=== PATIENT | female | born 1960 | race African-American/Black ===

== ENCOUNTER 2019-04-29 19:04 | Observation (INO) ==
--- NOTE | 2019-04-29 19:44 | PROVIDER DOCUMENTATION ---
HPI-Musculoskeletal Pain/Inj - GENERAL Chief Complaint: Back Pain Stated Complaint: BACK PAIN Time Seen by Provider: 04/29/19 19:17 Source: patient - HX OF PRESENT ILLNESS-MUSKULOSKELTAL Nature of Presenting Problem: 59yof present to ER with c/o R lower back pain radiating down R leg x 4-5 days. Pt denies urinary s/s. Pt denies fever. Pt nontoxic. Pt states she was seen at [facility] on Tuesday for same complaint. Pt states her INR on Tuesday was 8, states she was told not to take Coumadin until f/u on Tuesday. Pt denies any active bleeding. Pt brings a suitcase with her to ER and states "Im here to stay. I'm not going back home." Quality of Pain: reports: aching, throbbing Onset/Duration: 5 days ago Timing: still present Modifying Factors: improves with: rest. worse with: movement, palpation - BACK & NECK PAIN/INJURY Back/Neck Pain Location: reports: lumbar spine, paraspinous muscles Context / Method of Injury: reports: unknown Associated Symptoms: reports: lower back pain, muscle spasms. denies: fever, numbness in legs/feet, numbness in upper ext, weakness in legs/feet, weakness in upper ext Review of Systems - Adult - REVIEW OF SYSTEMS - ADULT Constitutional: reports: no symptoms reported. denies: chills, fever Eyes: reports: no symptoms reported Ears, Nose, Mouth & Throat: reports: no symptoms reported. denies: tinnitus, epistaxis Cardiovascular: reports: no symptoms reported Respiratory: reports: no symptoms reported. denies: shortness of breath Gastrointestinal: reports: no symptoms reported. denies: abdominal pain, diarrhea, nausea, vomiting Genitourinary: reports: no symptoms reported. denies: dysuria, frequency, hematuria, urgency Musculoskeletal: reports: see HPI, back pain (R lower), muscle aches Integumentary: reports: no symptoms reported Neurological: reports: no symptoms reported Psychiatric: reports: no symptoms reported Endocrine: reports: no symptoms reported Hematologic/Lymphatic: reports: no symptoms reported. denies: prolonged bleeding Allergic/Immunologic: reports: no symptoms reported All Other Systems: Reviewed and Negative Past History - Adult - PAST MEDICAL HISTORY-ADULT Review of Records: reports: Old Records Reviewed, Nursing Assessment Review, Medications Reviewed, Social history reviewed & non-contributory. Major Childhood Illnesses: reports: history unknown Cardiovascular: reports: HTN, heart valve problem, hyperlipidemia Respiratory: reports: denies history Gastrointestinal: reports: denies history Obstetrical/Gynecological: reports: denies history Genitourinary: reports: denies history Musculoskeletal: reports: denies history Neurological: reports: denies history Psychiatric: reports: denies history Endocrine/Immune: reports: Diabetes, other (High Cholesterol) - PRIOR SURGERIES/PROCEDURES Surgical/Procedure History: reports: orthopedic (extremity) - IMMUNIZATION STATUS Childhood Immunizations: See Nurse Assessment Flu Vaccine: See Nurse Assessment Physical Exam-Injury Related - Physical Exam-Injury Related Exam Limited by: body habitus Initial Vital Signs Reviewed: Yes General Appearance: appears well, alert, no apparent distress, obese (severely) Eyes: pink conjunctivae Head, Ears, Nose, Mouth & Throat: moist mucous membranes Neck: full range of motion, supple, normal inspection Respiratory: lungs clear, normal breath sounds, no respiratory distress, no accessory muscle use Cardiovascular: regular rate, rhythm Abdominal Exam: non tender, soft Back Exam: normal inspection, CVA tenderness (R), vertebral tenderness (lumbar) Integumentary: normal color, warm/dry Neurologic: grossly normal Psych/Mental Status: normal mood/affect, normal thought content, normal thought process, oriented x 3 Progress - PLAN OF CARE/RESULTS Progress/Plan/Lab Results: Vital Signs - 8 hr 04/29/19 19:08 Temperature 98.1 F Pulse Rate 89 Respiratory Rate 20 Blood Pressure 161/73 O2 Sat by Pulse Oximetry 98 Laboratory Results - last 24 hr 04/29/19 04/29/19 04/29/19 20:11 20:11 20:11 WBC 10.14 RBC 4.40 Hgb 12.2 Hct 37.6 MCV 85.5 MCH 27.7 MCHC 32.4 L RDW Std Deviation 15.4 H Plt Count 320 MPV 10.1 Immature Gran % (Auto) 0.2 Neut % (Auto) 71.4 Lymph % (Auto) 17.3 L [place] % (Auto) 10.1 H Eos % (Auto) 0.8 Baso % (Auto) 0.2 Immature Gran # (Auto) 0.02 Neut # (Auto) 7.25 H Lymph # (Auto) 1.75 [place] # (Auto) 1.02 H Eos # (Auto) 0.08 Baso # (Auto) 0.02 PT 105.4 H INR 13.29 H* PTT (Actin FS) 179.3 H* Urine Source Urine Color Urine Turbidity Urine pH Ur Specific [place] Urine Protein Ur Glucose (Stick) Ur Ketones (Stick) Urine Blood Urine Nitrite Urine Bilirubin Urobilinogen Dipstick Urine Leukocytes Urine WBC (Auto) Urine RBC (Auto) U Epithel Cells (Auto) Urine Bacteria (Auto) Urine Crystals Small Round Cells Urine Casts Urine Yeast-like Cells 04/29/19 20:36 WBC RBC Hgb Hct MCV MCH MCHC RDW Std Deviation Plt Count MPV Immature Gran % (Auto) Neut % (Auto) Lymph % (Auto) [place] % (Auto) Eos % (Auto) Baso % (Auto) Immature Gran # (Auto) Neut # (Auto) Lymph # (Auto) [place] # (Auto) Eos # (Auto) Baso # (Auto) PT INR PTT (Actin FS) Urine Source CLEAN CATCH Urine Color YELLOW Urine Turbidity HAZY Urine pH 6.0 Ur Specific [place] 1.034 Urine Protein 100 A Ur Glucose (Stick) NEGATIVE Ur Ketones (Stick) 10 A Urine Blood SMALL A Urine Nitrite NEGATIVE Urine Bilirubin NEGATIVE Urobilinogen Dipstick 2 A Urine Leukocytes NEGATIVE Urine WBC (Auto) 10-20 A Urine RBC (Auto) 10-20 A U Epithel Cells (Auto) >10 A Urine Bacteria (Auto) NEGATIVE Urine Crystals Not Reportable Small Round Cells Not Reportable Urine Casts Not Reportable Urine Yeast-like Cells PRESENT Orders Category Date Time Status LUMBAR SPINE [RAD] Stat Exams 04/29/19 19:37 Completed CBC WITH DIFF [HEME] Stat Lab 04/29/19 20:11 Completed PT [PROTIME WITH INR] [COAG] Stat Lab 04/29/19 20:11 Completed PTT [COAG] Stat Lab 04/29/19 20:11 Completed URINALYSIS W/POSS RFLX CULT [URINALYSIS] Stat Lab 04/29/19 20:36 Completed URINE CULTURE [RM] Routine Lab 04/29/19 21:20 Received URINE MANUAL MICROSCOPIC [URINALYSIS] Stat Lab 04/29/19 20:36 Completed Result Diagrams: 04/29/19 20:11 - REASSESSMENT Reassessment #1 Time Reassessed: 21:35 (reviewed results with pt. Pt states she has not taken coumadin since . Pt denies taking more than prescribed or thoughts of harming self. Pt states she was previously on 10mg daily. Pt denies any current bleeding.) Reassessment #2 Time Reassessed: 21:55 (confirmed dose of Vitamin K with Dr Morocho, agrees 2.5mg PO) - CONSULTS/PCP/HOSPITALIST Notification #1 *Consult/PCP/Hospitalist*: Dr Fox Time Discussed: 21:49 Consult Disposition: Will see in ED, Admit Departure - Departure Date of Disposition Decision: 04/29/19 Time of Disposition Decision: 21:54 DIAGNOSIS: Elevated international normalized ratio (INR) due to prior anticoagulant medication ingestion, Abnormal partial thromboplastin time (PTT) Disposition: ADMITTED INPATIENT Certified Medical Emergency: Emergent Condition: Fair Referrals and Follow-Ups: Marques Sapp MD [Primary Care Provider] - - Critical Care Note This patient required my direct & personal management of CC.: No Attestation - Physician/ DARBY Attestation Patient care was provided by Advanced Practice Provider:: Yes Advanced Practice Provider:: Lucía Gordon Advanced Practice Provider documentation review:: The Mid-level provider documentation, treatment plan and medical decision making was reviewed by the physician who agrees with all treatment and medical decision making by the MLP. The physician spent face to face time with patient:: No Advanced Practice Provider documentation review:: Supervising physician onsite and consulted in the evaluation and care of this patient. The physician did not have a face to face encounter with the patient.
[2019-04-29 20:22] LABS: BASO# 0.02 X1000 (0.0-0.2); BASO% 0.2 % (0.0-0.8); EOS# 0.08 X1000 (0.0-0.7); EOS% 0.8 % (0.0-10.0); HEMATOCRIT 37.6 % (37.0-47.0); HEMOGLOBIN 12.2 g/dL (12.0-16.0); IMM GRAN# 0.02 X1000 (0.0-0.04); IMM GRAN% 0.2 % (0.0-0.5); LYMPH# 1.75 X1000 (1.2-3.4); LYMPH% 17.3 % (20.5-51.1); MCH 27.7 PG (27-31); MCHC 32.4 g/dL (33-37); MCV 85.5 FL (81-99); MONO# 1.02 X1000 (0.11-0.59); MONO% 10.1 % (1.7-9.3); MPV 10.1 FL (7.4-10.4); NEUT# 7.25 X1000 (1.4-6.5); NEUT% 71.4 % (42.2-75.2); PLT 320 X1000 (130-400); RDW 15.4 % (11.5-14.5); WBC 10.14 X1000 (4.8-10.8)
[2019-04-29 20:49] LABS: URINE SOURCE CLEAN CATCH
[2019-04-29 21:03] LABS: BILIRUBIN URINE NEGATIVE (NEGATIVE); BLOOD URINE SMALL (NEGATIVE); COLOR YELLOW; GLUCOSE URINE NEGATIVE (NEGATIVE); KETONE URINE 10 mg/dL (NEGATIVE); LEUKOCYTES URINE NEGATIVE (NEGATIVE); NITRITE URINE NEGATIVE (NEGATIVE); PROTEIN URINE 100 mg/dL (NEGATIVE); SP GRAVITY URINE 1.034; TURBIDITY URINE HAZY (CLEAR); UROBILINOGEN URINE 2 mg/dL (NORMAL)
[2019-04-29 21:06] LABS: UR EPITHELIAL CELLS >10 /HPF (<10); URINE BACTERIA NEGATIVE /HPF
[2019-04-29 21:12] LABS: URINE YEAST PRESENT
[2019-04-29 21:29] LABS: PROTIME 105.4 Seconds (11.0-16.0)
[2019-04-29 21:30] LABS: INR 13.29
--- NOTE | 2019-04-29 21:32 | Diag Imaging Result Doc PS360 ---
EXAM: LUMBAR SPINE INDICATION: back pain TECHNIQUE: 6 views COMPARISON: None. FINDINGS: There is multilevel endplate degenerative arthropathy with bulky marginal osteophytes throughout the lumbar spine. There is no evidence of fracture, subluxation, or significant intrinsic osseous lesion, otherwise. The vertebral body heights are maintained. Surrounding soft tissues are unremarkable. IMPRESSION: Multilevel degenerative arthropathy. No evidence of acute osseous abnormality. Electronically signed by Ethan Schulz 04/29/2019 9:30 PM
[2019-04-29] MEDS ORDERED: VITAMIN K PO ONE ×2 (21:52→22:03)
[2019-04-30] LABS: AGAP 15; ALBUMIN 4.2 g/dL (3.5-5.0); ALKALINE PHOSPHATASE 99 U/L (32-104); BUN 11 mg/dL (8-22); CHLORIDE 99 mmol/L (98-107); COSMO 282; CREATININE 1.1 mg/dL (0.5-0.9); ESTIMATED GFR > 60; GLUCOSE 187 mg/dL (70-104); GOT 36 U/L (10-30); GPT 16 U/L (10-36); POTASSIUM 4.1 mmol/L (3.5-5.1); SODIUM 139 mmol/L (136-145); TCO2 25 mmol/L (25-35); TOTAL BILIRUBIN 1.08 mg/dL (0.20-1.00); TOTAL PROTEIN 8.6 g/dL (6.3-8.3)
[2019-04-30] MEDS ORDERED: ZOFRAN IV PRN (00:41)
[2019-04-30] MEDS ORDERED: TYLENOL PO PRN (00:41)
--- NOTE | 2019-04-30 03:10 | HISTORY AND PHYSICAL ---
CHIEF COMPLAINT: Back pain. HISTORY OF PRESENT ILLNESS: The patient is a 59-year-old female who presented to the ER complaining of back pain radiating down her right leg for the past 4 or 5 days. She states that her INR was checked a couple of days ago and it was 8. Interestingly she left [facility] approximately a week ago and it was 2.5. She does have a mitral valve replacement and was told need to stay between 2.5 and 3.5. PAST MEDICAL HISTORY: Hypertension, hyperlipidemia, diabetes, high cholesterol, replacement of her mitral valve. REVIEW OF SYSTEMS: The patient denies any cough, congestion, fevers or chills. Denies any dysuria, frequency, urgency, constipation, melena, hematochezia, hematemesis or hematuria. Denies any free bleeding or bruising. She does states she has some back pain in her right lower side, with right leg symptoms. Denies headaches, blurred vision or change in vision. Denies any recent falls. Denies cough, congestion, shortness of breath or skin rashes. FAMILY HISTORY: Noncontributory. SOCIAL HISTORY: The patient does not smoke or drink. She lives at home. ALLERGIES: Benzocaine, erythromycin, gluten. HOME MEDICATIONS: Elavil 100 at bedtime, lisinopril 5, Crestor 20, metformin 500 with breakfast. PHYSICAL EXAMINATION: VITAL SIGNS: Temperature 98 degrees, pulse 89, respiratory rate 20, blood pressure 161/73, O2 sat 98% on room air. GENERAL: The patient is an awake, alert, obese female who is in no current respiratory distress. HEENT: Normocephalic. NECK: Supple. CARDIOVASCULAR: Regular rate. CHEST: Clear. ABDOMEN: Soft. EXTREMITIES: She is noted to move all extremities. She has no edema. LABORATORY DATA: INR 13.2, H H 12 and 37. CMP currently pending. ASSESSMENT: 1. Markedly elevated INR at 13.2. 2. Questionable urinary tract infection, although does have greater than 10 epithelial cells. 3. Hypertension. 4. High cholesterol. 5. Diabetes. PLAN: We will admit the patient to the hospital, place her on vitamin K, restart her home medications, follow her INRs, recheck her INR in the a.m. and we will adjust. Clearly we will hold her Coumadin. I did discuss with the patient that despite the fact that she is having back pain, her INR is elevated. Her back pain certainly would not warrant hospital admission. This certainly will need to be worked up as an outpatient. cc: Harvinder Paz MD
[2019-04-30 07:32] LABS: PROTIME 61.4 Seconds (11.0-16.0)
[2019-04-30 07:45] LABS: AGAP 15; BUN 10 mg/dL (8-22); CALCIUM 9.3 mg/dL (8.8-10.2); CHLORIDE 100 mmol/L (98-107); COSMO 280; CREATININE 0.8 mg/dL (0.5-0.9); ESTIMATED GFR > 60; GLUCOSE 167 mg/dL (70-104); POTASSIUM 3.3 mmol/L (3.5-5.1); SODIUM 139 mmol/L (136-145); TCO2 24 mmol/L (25-35)
[2019-04-30] MEDS: GLUCOPHAGE PO SCH (09:40)
[2019-04-30] MEDS: PRINIVIL PO SCH (09:40)
[2019-04-30] MEDS: CRESTOR PO SCH (09:40)
--- NOTE | 2019-04-30 11:40 | PROGRESS NOTE ---
DATE: 04/30/2019 SUBJECTIVE: Ms. Weiner came in with back pain. Her doctor is Dr. Marques Sapp. A 59-year-old presented to the emergency room with back pain radiating down the right leg for 4 or 5 days. States she had INR was checked a couple days ago and it was 8. Interesting she left [facility] approximately a week ago, it was 2.5. She has mitral valve replacement and needs to stay between 2.5 and 3.5. Apparently, she has been on a couple antibiotics last couple days. Past medical history of hypertension, hyperlipidemia, diabetes, high cholesterol, replacement of mitral valve. So she is admitted with Coumadin toxicity and elevated INR. OBJECTIVE: Vital Signs: Temperature 98.8 degrees, remains afebrile, pulse 90, respirations 20, blood pressure 129/48. HEENT: Pupils are equal and round. Lungs: Clear in all lung kaiser. Cardiovascular: Regular rate without murmur or S3. Abdomen: Soft. Skin: Warm and dry white count [id number], hematocrit 37 platelet count 320,000 sodium 139, potassium 3.3, chloride 100, bicarb 24, BUN 10, creatinine 0.8. AST 36, ALT 16. Pro time was 61 with INR 6.7. PLAN: Holding Coumadin. Getting some vitamin K and will continue to follow pro times daily. cc: Taco Ponce MD
[2019-04-30 20:54] LABS: INR 6.77
[2019-04-30] MEDS ORDERED: ELAVIL PO SCH (21:00)
[2019-04-30] MEDS ORDERED: MIRAPEX PO SCH (21:00)
[2019-05-01 07:23] LABS: INR 1.53; PROTIME 18.7 Seconds (11.0-16.0)
[2019-05-01] MEDS: PRINIVIL PO SCH (08:49)
[2019-05-01] MEDS: GLUCOPHAGE PO SCH (08:49)
[2019-05-01] MEDS: CRESTOR PO SCH (08:50)
[2019-05-01 11:59] VITALS: BP 124/49
--- NOTE | 2019-05-02 14:41 | DISCHARGE SUMMARY ---
ADMISSION DATE: 04/29/2019 DISCHARGE DATE: 05/01/2019 DISCHARGE DIAGNOSES: 1. Coagulopathy with INR of 13.2. 2. Questionable urinary tract infection that is resolved. 3. Hypertension. 4. Hypercholesterolemia. 5. Diabetes mellitus type 2.. CONSULTATIONS: None. PROCEDURES: Lumbar spine x-ray showed multilevel degenerative arthropathy, but no evidence of acute osseous abnormality. HOSPITAL COURSE: In brief, this is a 59-year-old female, who is complaining of back pain radiating to her right knee for 4 to 5 day. She was seen in [facility] for elevated INR, but when she comes here to this hospital they checked labs and they found the INR was very high, so she was admitted for coagulopathy. She received so far vitamin K. The patient's INR drops down. So, the INR at discharge is 1.53, so decided to discharge her with Lovenox as a bridge and also warfarin 3 cm to her usual doses. She is supposed to go and see her primary care doctor to regulate her amount of warfarin. Her usual dose was 10 mg p.o. daily. DISCHARGE PHYSICAL EXAMINATION: Vitals: Temperature 97.5 degrees, heart rate 87, respiratory rate 20, blood pressure 124/49, O2 saturation 95% on room air. General examination: This is a chronically ill-appearing, 59-year-old female lying in bed in no acute distress. Cardiovascular exam: S1, S2 heard. No murmurs, gallops or rubs. Regular rate and rhythm. Respiratory exam: Clear bilaterally to auscultation. No work of breathing or using accessory muscles. Abdomen: Soft. Nontender to palpation. Bowel sounds present. No organomegaly. Extremities: No clubbing, cyanosis or edema. Peripheral pulses present in both legs. Neurological exam: The patient is alert and oriented x3. Moves 4 extremities. DISCHARGE DISPOSITION: Home to self-care. RECENT MEDICATION: We are not making any changes to her medications. We are going to restart on warfarin 10 mg p.o. at night, and the patient is going to be seen on Tuesday by Dr. Sapp for adjustment of INR medication. cc: Efe Richards MD MTDD
== END 2019-05-01 16:47 | disposition home health service (06) ==
LOC: 3N 19:04 → ED 19:04 → SUATTDRO 23:53
PROVIDERS: ATTEND Internal Medicine